=== PATIENT | female | born 1950 | race Caucasian/White ===

== ENCOUNTER 2017-03-18 10:35 | Inpatient (IN) | payer BC ==
[2017-03-03 08:54] VITALS: BMI 31.0
--- NOTE | 2017-03-03 09:26 | PAT Medication Instructions ---
Service Date Mar 03, 2017. Current Home Medication List Acetaminophen (Tylenol), 1,000 MG PO TID PRN for Pain Atorvastatin (Lipitor), 10 MG PO QAM Lisinopril (Zestril), 20 MG PO QAM Meloxicam (Mobic), 15 MG PO QPM Medication Instructions For Your Scheduled Surgery - Hold the following medications 10 days prior to surgery per surgeon's instructions: Meloxicam (Mobic), 15 MG PO QPM - Hold the following medications the morning of surgery: Lisinopril (Zestril), 20 MG PO QAM - Take the following medications the morning of surgery with a sip of water OTHERWISE NOTHING TO EAT OR DRINK AFTER MIDNIGHT: Atorvastatin (Lipitor), 10 MG PO QAM Acetaminophen (Tylenol), 1,000 MG PO TID PRN for Pain (may take if needed up to 4 hours prior to surgery) - Take the following medications as scheduled the night before surgery: Acetaminophen (Tylenol), 1,000 MG PO TID PRN for Pain If you have any questions please call us at [phone] or [phone] or [phone]
--- NOTE | 2017-03-03 10:07 | DIAGNOSTIC IMAGING REPORT ---
CHEST PREADMISSION(PA/LAT) CLINICAL HISTORY: Preoperative evaluation. COMPARISON STUDY: No previous studies for comparison. FINDINGS: Lung volumes are normal. There is no pneumothorax or pleural effusion. Linear left basilar opacity is suggestive of atelectasis or scarring. Cardiac size is at the upper limits of normal. There is no evidence of pulmonary edema. Incidental note is made of mild S-shaped scoliosis of the thoracolumbar spine. IMPRESSION: No acute cardiopulmonary findings. Electronically signed by: Roosevelt Holliday M.D. 03/03/2017 10:06 AM Dictated Date/Time: 03/03/2017 10:04 AM
[2017-03-03 10:52] LABS: BASO % 0.3 %; BASO ABS # 0.02 K/uL (0-0.2); COMPLETE YES; EOS % 2.1 %; IG% 0.2 %; LYMPH % 27.6 %; LYMPH ABS # 1.83 K/uL (1.2-3.4); MEAN CELL VOLUME 92.5 fL (80-100); MEAN CORPUSCULAR HEMOGLOBIN 30.8 pg (25-34); MEAN CORPUSCULAR HGB CONC 33.3 g/dl (32-36); MEAN PLATELET VOLUME 8.8 fL (7.4-10.4); MONO % 6.9 %; NEUT % 62.9 %; PLATELET COUNT 333 K/uL (130-400); RED BLOOD COUNT 4.54 M/uL (4.2-5.4); WHITE BLOOD COUNT 6.63 K/uL (4.8-10.8)
[2017-03-03 11:04] LABS: INR 0.9 (0.9-1.1); PARTIAL THROMBOPLASTIN RATIO 1.1
[2017-03-03 11:05] LABS: BUN/CREATININE RATIO 22.5 (10-20); CALCIUM 8.9 mg/dl (8.5-10.1); CREATININE 0.77 mg/dl (0.60-1.20); POTASSIUM 4.2 mmol/L (3.5-5.1)
--- NOTE | 2017-03-13 21:25 | HISTORY & PHYSICAL EXAMINATION ---
DATE OF ADMISSION: 03/18/2017 CHIEF COMPLAINT: Right hip pain. HISTORY OF PRESENT ILLNESS: The patient is a 66-year-old female from the [facility] area, who presents for treatment of her right hip. The patient has a 2-year history of increasing right hip pain and discomfort. She has been through extensive conservative treatment including oral medicines. She started using a cane to get around. The more she walks, the more it hurts. She cannot walk any significant distance. 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 She would like to have the right hip fixed. PAST MEDICAL HISTORY: 1. Elevated cholesterol. 2. Hypertension. 3. Mild obesity, BMI of 31.6. PAST SURGICAL HISTORY: Hysterectomy. ALLERGIES: None. CURRENT MEDICINES: 1. Atorvastatin 10 mg. 2. Meloxicam 15 mg. 3. Lisinopril 20 mg a day. 4. Tylenol Extra Strength 2-3 times a day. SOCIAL HISTORY: A 66-year-old female. Lives in [place]. She is . Two children. 1-2 drinks per day. FAMILY HISTORY: Significant for thyroid removal. REVIEW OF SYSTEMS: Negative for diabetes, neurologic problems, vascular problems, bleeding disorders. No chest pain, no shortness of breath. No history of DVT or PE. PHYSICAL EXAMINATION: GENERAL: Reveals a healthy pleasant, middle-aged female, who looks in pretty good health. HEENT: Benign. NECK: Supple. No lymphadenopathy. LUNGS: Clear to auscultation. HEART: Regular rate and rhythm. ABDOMEN: Soft, nontender, nondistended. EXTREMITIES: Grossly neurovascularly intact except as follows. Examination of the right hip and leg reveals the patient walks with a markedly antalgic gait. She has about a 0.5 cm to 1 cm short on the right side compared to the left. She has got pain and stiffness with any type of hip motion. She is neurologically intact. X-RAYS: X-rays of the right hip were reviewed. It shows advanced right hip DJD. Has got complete loss of her superior joint space. She has cystic change in the femoral head and acetabulum. She has got a little flattening of the femoral head. ASSESSMENT: A 66-year-old female with a 2-year history of increasing right hip pain and discomfort, unresponsive to conservative treatment. She has got advanced hip arthritis. She would like to have her hip fixed. PLAN: We will take her to the operating room, do a right total hip replacement. The risks and benefits of this procedure were explained to the patient including, but not limited to, DVT, PE, , infection, neurological injury, vascular injury, bleeding problem, pain, limited range of motion, stiffness, failure to relieve symptoms, incomplete relief of symptoms , need for further surgery in the future, fracture, leg length inequality, nerve palsy, dislocation, need for revision surgery, etc. The patient understands and desires to proceed. Informed consent was obtained. We did talk about holding the lisinopril the morning of surgery and stopping the Mobic about 10 days preop. She is planning to be discharged to home using [facility]. I will see her back 2 weeks postop. MACI
[2017-03-18] VITALS (13 sets, daily range): BP systolic 114–152; BP diastolic 74–89; PULSE 62–96; TEMP 34.8–36.8; O2SAT 18–98; Ht 157.5 cm; Wt 78.3 kg
[~2017-03-18] VITALS: Ht 157.5 cm; Wt 78.3 kg
[~2017-03-18 10:35] MED LIST: ACET-1256 PO; ACETAMINOPHEN 500 MG TAB PO SCH; ATOR10TA82 PO; ATROPINE SULFATE 0.1 MG/ML 5ML SYR IV PRN; BUPIVACAINE 0.5 % 5 MG/1 ML PF 10ML VIAL ONE; CEFAZOLIN 2000 MG/60 ML D5W 60 ML IV SCH; EpHEDrine SULFATE INJ 50 MG/ML AMP IV PRN; FAMOTIDINE 20 MG TAB PO SCH; FENTANYL CITRATE INJ 50 MCG/1 ML 2 ML VIAL IV PRN; GABAPENTIN 300 MG CAP PO SCH; LACTATED RINGER'S 1000ML 1,000 ML IV SCH; LACTATED RINGER'S 1000ML 500 ML IV ONE; LACTATED RINGER'S 1000ML IV SCH; LISI-725 PO; MELO7.5T5 PO; METOCLOPRAMIDE HCL 10 MG TAB PO SCH; ONDANSETRON INJ 2 MG/ML 2 ML VIAL IV PRN; SCOPOLAMINE 1.5 MG TDSY TD SCH; TRANEXAMIC ACID INJ 1,000 MG in SODIUM CHLORIDE 0.9% 100ML 100 ML IV SCH
[2017-03-18] MEDS ORDERED: LIDOCAINE HCL 2% 2 ML VIAL (20MG/ML) ONE (11:30)
[2017-03-18] MEDS ORDERED: FENTANYL CITRATE INJ 50 MCG/1 ML 2 ML VIAL ONE (11:30)
[2017-03-18] MEDS ORDERED: PROPOFOL IV EMULSION 10 MG/ML 20 ML VIAL IV ONE (11:30)
[2017-03-18] MEDS ORDERED: MIDAZOLAM HCL 1 MG/ML 2ML VIAL ONE ×2 (11:30→12:43)
[2017-03-18] MEDS ORDERED: MoRPHine SULFATE PF 1 MG/ML 10 ML AMP/VIAL ONE (11:31)
--- NOTE | 2017-03-18 12:26 | History & Physical Bridge Note ---
H&P Re-Evaluation Bridge Note: I have examined the patient, reviewed the History & Physical and in the interval since the performance of the History & Physical I have noted the following changes of clinical significance: No changes noted
[2017-03-18] MEDS ORDERED: BACITRACIN 50000 UNIT VIAL ONE (12:35)
[2017-03-18] MEDS ORDERED: BUPIVACAINE/EPINEPHRINE 0.5% MPF 1:200,000 30 ML VIAL ONE (12:47)
[2017-03-18] MEDS ORDERED: KETAMINE HCL INJ 50 MG/ML 10 ML VIAL ONE (12:58)
[2017-03-18] MEDS ORDERED: NALOXONE HCL INJ 0.08 MG in SYRINGE 1.8 ML IV PRN (13:39)
[2017-03-18] MEDS ORDERED: SODIUM CHLORIDE 0.9% 1000ML 1,000 ML IV PRN (13:39)
[2017-03-18] MEDS ORDERED: LACTATED RINGER'S 1000ML 500 ML IV PRN (13:39)
[2017-03-18] MEDS ORDERED: NALOXONE HCL INJ 1 MG in SODIUM CHLORIDE 0.9% 1000ML 1,000 ML IV PRN (13:39)
[2017-03-18] MEDS ORDERED: MoRPHine SULFATE 2 MG/ML CARP IV PRN (13:45)
[2017-03-18] MEDS ORDERED: EpHEDrine SULFATE INJ 50 MG/ML AMP IV PRN (13:45)
[2017-03-18] MEDS ORDERED: MoRPHine SULFATE PF 1 MG/ML 10 ML AMP/VIAL INT SPINAL PRN (13:45)
[2017-03-18] MEDS ORDERED: NALOXONE HCL 0.4 MG/1 ML VIAL/CARP IV PRN (13:45)
[2017-03-18] MEDS ORDERED: DiphenhydrAMINE HCL 50 MG/ML VIAL IV PRN (13:45)
[2017-03-18] MEDS ORDERED: NALBUPHINE HCL INJ 10 MG/ML AMP IV PRN (13:45)
[2017-03-18] MEDS ORDERED: MEPERIDINE HCL 25 MG/ML CARP IV PRN (13:45)
--- NOTE | 2017-03-18 14:29 | [facility] Post Operative Brief Note ---
Immediate Operative Summary Operative Date Mar 18, 2017. Pre-Operative Diagnosis Right Hip Advanced Degenerative Joint Disease Post-Operative Diagnosis Right Hip Advanced Degenerative Joint Disease Procedure(s) Performed Right Total Hip Arthroplasty--Uncemented Surgeon Dr. Bernard Cutting Torch Operator Surgeon(s) ARIELLA Torrez Estimated Blood Loss 300 ml Findings Right Hip DJD Fluids (cc crystalloids) 1800 cc Specimens A. Right Femoral Head Drains None Anesthesia Spinal Complication(s) None Disposition Recovery Room / PACU
[2017-03-18] MEDS ORDERED: MAGNESIUM HYDROXIDE SUSP 30 ML UDC PO PRN (14:30)
[2017-03-18] MEDS ORDERED: BISACODYL 10 MG SUPP PR PRN (14:30)
[2017-03-18] MEDS ORDERED: SILVER SULFADIAZINE 1% CR 50 GM JAR EXT PRN (14:30)
[2017-03-18] MEDS ORDERED: ALUMINUM/MAGNESIUM/SIMETH (MAALOX MAX) 30 ML UDC PO PRN (14:30)
[2017-03-18] MEDS ORDERED: VASOPRESSIN 20 UNIT/ML VIAL ONE (14:31)
--- NOTE | 2017-03-18 15:09 | DIAGNOSTIC IMAGING REPORT ---
RIGHT PELVIS/UNILATERAL HIP 1 VIEW CLINICAL HISTORY: IN PACU - A/P PELVIS and LATERAL HIP INCLUDING ALL OF IMPLANT Right pain COMPARISON: None. DISCUSSION: Total right hip replacement. Good contact between prosthetic and underlying bone. No evidence for acetabular protrusion. Expected soft tissue postoperative change IMPRESSION: Anatomic alignment status post total right hip replacement Electronically signed by: Mart Villasenor M.D. 03/18/2017 3:07 PM Dictated Date/Time: 03/18/2017 3:07 PM
--- NOTE | 2017-03-18 15:18 | Anesthesiology Progress Note ---
Anesthesia Post Op Note Date & Time Mar 18, 2017 at 15:17 Vital Signs Pain Intensity: 0 Vital Signs Past 12 Hours Date Time Temp Pulse Resp B/P (MAP) Pulse Ox O2 Delivery O2 Flow Rate FiO2 03/18/17 15:10 94 17 162/86 99 Nasal Cannula 2 03/18/17 15:00 36.5 85 15 159/83 98 Nasal Cannula 2 03/18/17 14:50 99 17 151/89 98 Nasal Cannula 2 03/18/17 14:40 91 24 145/85 99 Nasal Cannula 4 03/18/17 14:30 92 15 150/87 99 Nasal Cannula 4 03/18/17 14:24 36.5 92 12 165/100 98 Nasal Cannula 4 03/18/17 11:02 36.8 62 20 143/78 94 Room Air Notes Mental Status: alert / awake / arousable, participated in evaluation Pt Amnestic to Procedure: Yes Nausea / Vomiting: adequately controlled Pain: adequately controlled Airway Patency, RR, SpO2: stable & adequate BP & HR: stable & adequate Hydration State: stable & adequate Neuraxial Anesthesia: was administered, sensory block is resolving Anesthetic Complications: no major complications apparent
[2017-03-18] MEDS: CHECK SCOPOLAMINE PATCH PLACEMENT SCH ×2 (15:33→23:15)
[2017-03-18] MEDS: ONDANSETRON INJ 2 MG/ML 2 ML VIAL IV PRN ×2 (15:33→23:22)
[2017-03-18] MEDS: D5W AND 1/2NSS + 20MEQ KCL 1,000 ML IV SCH (16:54)
[2017-03-18] MEDS: FERROUS GLUCONATE 324 MG TAB PO SCH (18:01)
[2017-03-18] MEDS: KETOROLAC TROMETHAMINE 30 MG/ML VIAL IV. SCH ×2 (18:02→23:15)
[2017-03-18] MEDS: CEFAZOLIN IV 1,000 MG in DEXTROSE 5% 50ML 50 ML IV SCH (19:56)
[2017-03-18] MEDS ORDERED: TRANEXAMIC ACID INJ 1,000 MG in SODIUM CHLORIDE 0.9% 100ML 100 ML IV ONE (20:00)
--- NOTE | 2017-03-18 20:36 | OPERATIVE REPORT ---
DATE OF OPERATION: 03/18/2017 SURGEON: Andry Bernard MD VESSEL SLAG WORKER: ARIELLA Hammonds PREOPERATIVE DIAGNOSIS: Right hip degenerative joint disease. POSTOPERATIVE DIAGNOSIS: Same. PROCEDURE PERFORMED: Right uncemented ceramic on highly cross-linked polyethylene total hip arthroplasty. COMPLICATIONS: None. ESTIMATED BLOOD LOSS: 300 mL. FLUID REPLACEMENT: 1800 mL crystalloid fluid replacement. ANESTHESIA: Spinal. SPECIMENS: Right femoral head sent for pathology. OPERATIVE INDICATIONS: The patient is a 66-year-old female who has had a 2 year history of increasing right hip pain and discomfort. She has been through extensive conservative care without adequate relief. She has actually resorted to using a cane to get around. Pain has become more debilitating and she was having trouble doing her job as a result. She elected to do a total hip arthroplasty. OPERATIVE FINDINGS: Operative findings revealed advanced right hip DJD. She had grade 4 [id number] disease with an inflammatory pattern with extensive synovitis and inflammation at the femoral head and acetabulum. She had a moderate sized joint effusion. Fairly stiff hip. OPERATIVE IMPLANTS: Operative implants consisted of: 1. Biomet size 50 G7 acetabular shell. 2. A 6.5 cancellous acetabular screws, 1 at 35 mm length and 1 at 20 mm in length. 3. An apex hole eliminator. 4. Highly cross-linked polyethylene liner with a 50 mm outer diameter and 32 mm inner diameter. 5. A DePuy size 4 high offset [place] uncemented femoral stem. 6. A +5/32 mm ceramic articular ball. OPERATIVE PROCEDURE: The patient taken to the operating room, identified and placed on the operating table in supine position. All contact areas were appropriately padded. IV antibiotics were provided by anesthesia team. A spinal anesthetic had been implemented in the holding area. A Chiu catheter was placed in sterile fashion. The patient was placed in the left lateral decubitus position. An axillary roll was placed. [facility] was used for positioning. Right hip and leg were then prepped and draped in the usual sterile fashion. A posterolateral approach to the right hip was then performed through a curvilinear incision centered over the greater trochanter. Sharp dissection was carried out through the subcutaneous tissues down to the level of the IT band and gluteal fascia. The IT band and gluteal fascia were then incised longitudinally in line with the skin incision. The underlying greater trochanteric bursa was excised. The piriformis and external rotators and the posterior capsule was then incised in a single layer. Great care was taken throughout the procedure to protect the sciatic nerve at all times. Hip was internally rotated and dislocated. Femoral neck osteotomy cut was made with the final cut 11 mm above the lesser trochanter. Femoral head was removed and sent for pathology. The femur was retracted anteriorly. Attention was then drawn to the acetabulum. The acetabular labrum was excised. The pulvinar fat was excised. Sequential reaming of the acetabulum was then performed beginning with a size 43 and progressing up to 49. A 50 mm Biomet G7 acetabular shell was then placed in about 40 degrees of lateral opening and 20 degrees of anteversion. It was fixed with two 6.5 cancellous acetabular screws. A trial liner was placed. Attention was then drawn to the femur. The proximal femur was entered with a cookie cutter followed by canal finder and lateralizing reamer. Sequential reaming of the femur was then performed beginning with a size 01 progressing up to the 2, 3. We stopped at the size 3. I then broached beginning with a size 1 and progressing up to a 4. We got excellent metaphyseal fit with a 4. A calcar reamer was used to smoothen off the calcar. We then trialed the hip and the +5 articular ball provided full stability and full extension and external rotation and flexion to 90 degrees, internal rotation to 50 degrees. Leg lengths appeared appropriate. Attention was then drawn toward placement of permanent components. All trial implants were removed. An apex hole eliminator was placed. Highly cross-linked polyethylene liner was placed. A Greeley size 4 high offset femoral stem was impacted in position. A +5/32 mm ceramic articular ball was placed. Hip was located and once again found to be stable. Attention was then drawn toward closing. The wound was irrigated with copious amounts of pulsatile lavage solution. I did inject locally with 50 mL of 0.5% Marcaine with epinephrine. The posterior capsule and external rotators were then repaired through a single layer with #2 Tycron suture to the posterior aspect of the greater trochanter through drill holes. IT band and gluteal fascia were then closed with #1 PDS suture in a running fashion. The subcutaneous tissues were then closed with 2-0 Dexon suture and subcutaneous tissue was closed in 2 layers with the deep layer #1 Vicryl suture, subcutaneous tissues with 2-0 Dexon suture in a buried interrupted fashion. The skin was closed with skin jagruti. Leg was then cleaned and dried and a sterile dressing of Xeroform, 4 x 4, sterile ABD pad and foam tape was applied. The patient was then transferred to the recovery room in stable condition. The patient tolerated the procedure well with no complications. All needle and sponge counts were correct at the end of the operation. I attest to the content of the Intraoperative Record and any orders documented therein. Any exception s are noted below.
[2017-03-18] MEDS ORDERED: TAPENTADOL ER 50 MG TABCR PO SCH (21:00)
[2017-03-18] MEDS: ACETAMINOPHEN 500 MG TAB PO SCH (21:20)
[2017-03-18] MEDS: SENNA 8.6 MG TAB PO SCH (21:21)
[2017-03-18] MEDS: ASPIRIN 325 MG ECTAB PO SCH (21:21)
[2017-03-18] MEDS: DOCUSATE SODIUM 100 MG CAP PO SCH (21:22)
[2017-03-19] VITALS (15 sets, daily range): BP systolic 104–129; BP diastolic 66–69; PULSE 61–71; TEMP 36.3–37; O2SAT 94–99
[2017-03-19] MEDS: D5W AND 1/2NSS + 20MEQ KCL 1,000 ML IV SCH (02:15)
[2017-03-19] MEDS: CEFAZOLIN IV 1,000 MG in DEXTROSE 5% 50ML 50 ML IV SCH (03:43)
[2017-03-19] MEDS: KETOROLAC TROMETHAMINE 30 MG/ML VIAL IV. SCH ×3 (05:32→17:47)
[2017-03-19] MEDS: ACETAMINOPHEN 500 MG TAB PO SCH ×3 (05:33→21:25)
[2017-03-19 06:17] LABS: BASO % 0.1 %; BASO ABS # 0.01 K/uL (0-0.2); COMPLETE YES; HEMATOCRIT 33.1 % (37-47); IG% 0.1 %; LYMPH % 15.7 %; LYMPH ABS # 1.62 K/uL (1.2-3.4); MEAN CELL VOLUME 94.6 fL (80-100); MEAN CORPUSCULAR HEMOGLOBIN 30.9 pg (25-34); MEAN CORPUSCULAR HGB CONC 32.6 g/dl (32-36); MONO % 8.5 %; NEUT % 75.6 %; PLATELET COUNT 254 K/uL (130-400); WHITE BLOOD COUNT 10.29 K/uL (4.8-10.8)
[2017-03-19 06:56] LABS: BUN/CREATININE RATIO 16.5 (10-20); CALCIUM 8.1 mg/dl (8.5-10.1); CREATININE 0.77 mg/dl (0.60-1.20); POTASSIUM 4.3 mmol/L (3.5-5.1)
[2017-03-19] MEDS: CHECK SCOPOLAMINE PATCH PLACEMENT SCH ×2 (07:44→16:32)
[2017-03-19] MEDS: FERROUS GLUCONATE 324 MG TAB PO SCH ×3 (08:30→17:45)
[2017-03-19] MEDS ORDERED: DiphenhydrAMINE HCL 50 MG/ML VIAL IV PRN (08:45)
[2017-03-19] MEDS ORDERED: NO NARCOTICS OR SEDATIVES ONE (08:45)
[2017-03-19] MEDS ORDERED: ZOLPIDEM TARTRATE 5 MG TAB PO PRN (08:45)
[2017-03-19] MEDS ORDERED: MoRPHine SULFATE 2 MG/ML CARP IV PRN (08:45)
[2017-03-19] MEDS ORDERED: METOCLOPRAMIDE HCL INJ 5 MG/ML 2 ML VIAL IV PRN (08:45)
[2017-03-19] MEDS ORDERED: OXYCODONE HCL IR 5 MG TAB (IMMEDIATE RELEASE) PO PRN (08:45)
[2017-03-19] MEDS ORDERED: DC INTRASPINAL MORPHINE ONE (08:45)
[2017-03-19] MEDS ORDERED: ONDANSETRON INJ 2 MG/ML 2 ML VIAL IV PRN (08:46)
[2017-03-19] MEDS: ASPIRIN 325 MG ECTAB PO SCH ×2 (08:54→20:49)
[2017-03-19] MEDS: DOCUSATE SODIUM 100 MG CAP PO SCH ×2 (08:55→20:49)
[2017-03-19] MEDS: ATORVASTATIN 10 MG TAB PO SCH (08:55)
[2017-03-19] MEDS: PANTOprazole SOD 40 MG TAB PO SCH (08:55)
[2017-03-19] MEDS: MULTIVITAMIN TAB PO SCH (08:56)
[2017-03-19] MEDS: TAPENTADOL ER 50 MG TABCR PO SCH ×2 (08:57→20:49)
--- NOTE | 2017-03-19 10:31 | PROGRESS NOTE ---
DATE: 03/19/2017 SUBJECTIVE: A 66-year-old white female postop day 1 from right total hip replacement. She is doing well. Really denies much in the way of pain. No chest pain or shortness of breath. Not feeling dizzy or lightheaded. OBJECTIVE: VITAL SIGNS: Temperature 36.9. Vital signs stable. PHYSICAL EXAMINATION: GENERAL: Reveals a pleasant middle-aged female. She is sitting in her wheelchair out in the hallway, just finished therapy when I examined her this morning. LUNGS: Clear to auscultation. HEART: Regular rate and rhythm. ABDOMEN: Soft, nontender, nondistended. EXTREMITIES: Grossly neurovascularly intact except as follows: Examination of the right hip and leg reveals the dressing to be clean, dry and intact. She can dorsiflex and plantarflex her foot appropriately. Hip is located. NEUROLOGIC: She is neurologically intact. LABORATORY DATA: Hemoglobin 10.8, hematocrit 33.1. Electrolytes are stable. ASSESSMENT: A 66-year-old white female postop day 1 from right total hip replacement, doing well. Pain is controlled. Hip is located. She is neurologically intact. PLAN: 1. DVT prophylaxis including thigh-high TEDs, SCDs, and aspirin twice a day. 2. PT/OT. Weightbearing as tolerated. Right total hip protocol. 3. Pain control, doing well with current pain regimen. 4. Disposition: She is going to be discharged to home with some home health once adequately recovered. MACI
[2017-03-19] MEDS ORDERED: NURSING VERBAL MED ORDER ONE (10:45)
[2017-03-19] MEDS ORDERED: RXC5 PO (18:22)
[2017-03-19] MEDS ORDERED: FRRG PO (18:22)
[2017-03-19] MEDS ORDERED: ASPEC325 PO (18:22)
[2017-03-19] MEDS ORDERED: ACET-1256 PO (18:22)
--- NOTE | 2017-03-19 18:24 | Discharge Instructions ---
Discharge Instructions Date of Service Mar 19, 2017. Admission Reason for Admission: Right Hip Degenerative Joint Disease Discharge Discharge Diagnosis / Problem: Right Hip Replacement Discharge Goals Goal(s): Decrease discomfort, Improve function, Increase independence, Improve disease control, Therapeutic intervention Activity Recommendations Activity Limitations: per Instructions/Follow-up section (Total Hip Precautions ) Weightbearing Status: Right weightbearing . Instructions / Follow-Up Instructions / Follow-Up ACTIVITY RECOMMENDATIONS: Physical Therapy: * Aggressive physical therapy is not usually needed. You will learn to take care of yourself safely and walk. * Follow the "Hip Precautions Instructions." * In some cases, the social studies department chair at the hospital will arrange to have a therapist come to your house for the first couple of weeks to help you learn these skills. * You need to practice on your own or with the help of a family member as needed. * When you learn these skills, most of the therapy can be done on your own. Home Exercise: * You were shown a series of exercises in the hospital. Do these exercises three to four times each day including the exercises you were shown in physical therapy. Walking: * Get up and walk several times each day. For the first four weeks, try not to stand or walk for more than one hour at a time. If you do stand or walk for more than one hour, you will not hurt anything, but your leg will likely swell. * As you feel comfortable, you may change from the walker or crutches to a cane and then to independent walking. MEDICATIONS: New Medicine: * You will likely be taking one or more of these medicines: 1. Oxycodone - Take, as directed, when you need it, every four to six hours to control your pain. 2. Iron Sulfate - Take three times each day for the month after surgery to help you replace the blood lost during surgery. 3. Aspirin - Thins your blood to lessen the chance of forming a blood clot. * The most common side effects of pain medicine and iron are nausea and constipation. If nausea or constipation is too much of a problem or if you have any questions about your new medicines or doses, call [facility] at . We will try to help you manage these issues. VERY IMPORTANT TO READ AND REVIEW" Pain: * The immediate post-operative period after hip replacement surgery is often quite painful. * You are given a prescription for pain medicine. You should take it, as directed, when you need it, especially before physical therapy and before going to bed. Pain that interferes with sleep is very common and can last several months. * You will likely need pain medicine for the first two to four weeks. It will not stop all of the pain. The pain will lessen and as you feel better, you may change to milder pain medicine such as Tylenol. * The most common side effects of pain medicine are nausea and constipation, so don't take more than you need. SPECIAL CARE INSTRUCTIONS: TEDs/Elastic Stockings: * The white elastic stockings help limit swelling and prevent blood clots from forming in your legs. The more you wear them, the more they work. * Wear them for six weeks. Prevention of Infection: * Take antibiotics one hour before any dental cleaning, dental work, urological procedure, gastrointestinal procedure or any invasive surgery in order to prevent your new joint from getting infected. * You may get the antibiotics from the doctor performing the procedure or you may call our office at before and we will call in a prescription to the pharmacy of your choice. Things to Watch For: * Drainage from the incision site that occurs more than one week after your surgery. * Severely increased leg pain or swelling. * Increased redness at the incision site. * Fever above 102 degrees Fahrenheit. * Unusual chest pain or shortness of breath. * Unusual pain or burning with urination. Call [facility] at with any of the above problems or if you have any questions about your medicines or recovery. FOLLOW UP VISIT: Make an appointment to see your doctor for approximately two weeks after surgery for a progress check and staple removal by calling the office at . Current Hospital Diet Patient's current hospital diet: Regular Diet Discharge Diet Recommended Diet: Regular Diet Procedures Procedures Performed: Right Total Hip Arthroplasty--Uncemented Pending Studies Studies pending at discharge: no Medical Emergencies . Who to Call and When: Medical Emergencies: If at any time you feel your situation is an emergency, please call [phone] immediately. . Non-Emergent Contact Non-Emergency issues call your: Surgeon . "Provider Documentation" section prepared by Andry Bernard. . VTE Core Measure Inpt VTE Proph given/why not?: Other Anticoagulation, T.E.D. Stockings, SCD's
[2017-03-19] MEDS: SENNA 8.6 MG TAB PO SCH (21:25)
[2017-03-20] MEDS: CHECK SCOPOLAMINE PATCH PLACEMENT SCH
[2017-03-20] MEDS: KETOROLAC TROMETHAMINE 30 MG/ML VIAL IV. SCH ×2 (05:30)
[2017-03-20] MEDS: ACETAMINOPHEN 500 MG TAB PO SCH (05:30)
[2017-03-20 06:08] VITALS: BP 152/83; PULSE 76; TEMP 36.9; O2SAT 93
[2017-03-20 07:41] VITALS: BP 122/70; PULSE 74; TEMP 36.9; O2SAT 95
[2017-03-20] MEDS: TAPENTADOL ER 50 MG TABCR PO SCH (08:18)
[2017-03-20] MEDS: PANTOprazole SOD 40 MG TAB PO SCH (08:19)
[2017-03-20] MEDS: FERROUS GLUCONATE 324 MG TAB PO SCH (08:20)
[2017-03-20] MEDS: ATORVASTATIN 10 MG TAB PO SCH (08:20)
[2017-03-20] MEDS: MULTIVITAMIN TAB PO SCH (08:21)
[2017-03-20 08:39] VITALS: O2SAT 95
[2017-03-20] MEDS: ASPIRIN 325 MG ECTAB PO SCH (08:51)
[2017-03-20] MEDS: DOCUSATE SODIUM 100 MG CAP PO SCH (08:52)
--- NOTE | 2017-03-20 09:18 | PROGRESS NOTE ---
DATE: 03/20/2017 DATE: 03/20/2017. SUBJECTIVE: A 66-year-old white female postop day 2 from right total hip replacement. She is doing well. Some pain with motion but very well controlled. Therapy has gone well. No chest pain or shortness of breath. Not feeling dizzy or lightheaded. OBJECTIVE: VITAL SIGNS: Temperature 36.9. Vital signs stable. PHYSICAL EXAMINATION: GENERAL: Reveals a healthy pleasant 66-year-old female. She is sitting up in bed, looks pretty comfortable. LUNGS: Clear to auscultation. HEART: Regular rate and rhythm. ABDOMEN: Soft, nontender, nondistended. EXTREMITY EXAMINATION: Grossly neurovascularly intact except as follows: Examination of the right hip and leg reveals the wound to be clean, dry and intact. Her leg lengths are equal. Hip is located. She is neurologically intact. ASSESSMENT: A 66-year-old female postop day 2 from right total hip replacement, doing quite well. PLAN: 1. DVT prophylaxis including thigh-high TEDs, SCDs, and aspirin twice a day. 2. PT/OT. Weightbearing as tolerated. Right total hip protocol. 3. Pain control. Doing well with current pain regimen. 4. Disposition. Plan to discharge to home with home health later on today.
[2017-03-20 10:17] VITALS: BP 122/70; PULSE 74; TEMP 36.9; O2SAT 95
--- NOTE | 2017-03-26 16:19 | Discharge Summary ---
Orthopedic Discharge Summary Admission Date/Reason Mar 18, 2017 at 16:03 Right Hip Degenerative Joint Disease. Discharge Date/Disposition Mar 20, 2017 Home with services Diagnosis Principal Diagnosis: right hip DJD Secondary Diagnoses/Problems: 1. Elevated cholesterol. 2. Hypertension. 3. Mild obesity, BMI of 31.6. Procedure(s) Performed right GHADA Consultations NONE Medication Reconciliation New Medications: Aspirin (Aspirin) 325 Mg Ectab 325 MG PO BID for 45 Days, #90 Take to prevent blood clots. Ferrous Gluconate (Ferrous Gluconate) 324 Mg Tab 324 MG PO BIDM for 30 Days, #60 TAB Take to restore blood count. Oxycodone HCl (Oxycodone HCl) 5 Mg Tab 5 MG PO Q4H PRN for Pain for 30 Days, #60 TAB Take as needed for Pain. Changed Medications: Acetaminophen (Tylenol) 500 Mg Tab 1000 MG PO TID PRN for Pain for 30 Days, #180 TAB (Medication details modified) Take 3 times per day to lessen pain. Continued Medications: Atorvastatin (Lipitor) 10 Mg Tab 10 MG PO QAM, TAB Lisinopril (Zestril) 20 Mg Tab 20 MG PO QAM, TAB Meloxicam (Mobic) 7.5 Mg Tab 15 MG PO QPM, TAB Admission Physical Exam As per Admitting History & Physical. Hospital Course Jeanne was admitted on 6//17 and underwent GHADA. She tolerated the procedure well. No complications. She was transferred to the pacu post op and later to the orthopedic floor for further care. She was given ancef for antibiotic prophylaxis. Teds, scd's, and aspirin for dvt prophylaxis. Hemoglobin, hematocrit and vital signs were monitored and remained stable. She did not require any blood transfusions. By POD #2 she was tolerating a general diet. Pain was controlled with oral pain medicine. she was participating in PT and had no s/s of dvt. On POD#2 she was discharged home and set up with home health. She was given printed discharge instructions including new prescriptions as above. Continue PT , total hip precautions, WBAT, romeo stockings, follow up in 10-12 days or sooner if there are problems or concerns. Discharge Instructions Please refer to the electronic Patient Visit Report (Discharge Instructions) for additional information.
== END 2017-03-20 10:46 | disposition home health service (06) | DRG 470 ==
LOC: C.ACU 10:35 → ENRESERV 14:48 → C.3E 16:03
PROVIDERS: ADMIT Orthopaedic Surgery Sports Medicine; ATTEND Orthopaedic Surgery Sports Medicine
PROC: 0SR904A Replacement of Right Hip Joint with Ceramic on Polyethylene Synthetic Substitute, Uncemented, Open Approach (ICD-10-PCS; principal; 2017-03-18 12:45)
DX: M16.11 Unilateral primary osteoarthritis, right hip (principal); E78.00 Pure hypercholesterolemia, unspecified; E66.9 Obesity, unspecified; I10 Essential (primary) hypertension; F17.210 Nicotine dependence, cigarettes, uncomplicated; E78.5 Hyperlipidemia, unspecified; M41.9 Scoliosis, unspecified; Z79.899 Other long term (current) drug therapy; Z79.1 Long term (current) use of non-steroidal anti-inflammatories (NSAID); Z68.31 Body mass index [BMI] 31.0-31.9, adult

== ENCOUNTER → 2017-07-23 | Outpatient (CLI) | payer BC ==
[~2017-07-23] MED LIST changes: -ACETAMINOPHEN 500 MG TAB PO SCH; +ASPEC325 PO; -ATROPINE SULFATE 0.1 MG/ML 5ML SYR IV PRN; -BUPIVACAINE 0.5 % 5 MG/1 ML PF 10ML VIAL ONE; -CEFAZOLIN 2000 MG/60 ML D5W 60 ML IV SCH; -EpHEDrine SULFATE INJ 50 MG/ML AMP IV PRN; -FAMOTIDINE 20 MG TAB PO SCH; -FENTANYL CITRATE INJ 50 MCG/1 ML 2 ML VIAL IV PRN; +FRRG PO; -GABAPENTIN 300 MG CAP PO SCH; -LACTATED RINGER'S 1000ML 1,000 ML IV SCH; -LACTATED RINGER'S 1000ML 500 ML IV ONE; -LACTATED RINGER'S 1000ML IV SCH; -METOCLOPRAMIDE HCL 10 MG TAB PO SCH; -ONDANSETRON INJ 2 MG/ML 2 ML VIAL IV PRN; +RXC5 PO; -SCOPOLAMINE 1.5 MG TDSY TD SCH; -TRANEXAMIC ACID INJ 1,000 MG in SODIUM CHLORIDE 0.9% 100ML 100 ML IV SCH
[2017-07-23 18:08] LABS: BASO % 0.4 %; BASO ABS # 0.03 K/uL (0-0.2); COMPLETE YES; EOS % 2.4 %; HEMATOCRIT 42.2 % (37-47); IG% 0.1 %; LYMPH % 43.3 %; LYMPH ABS # 3.24 K/uL (1.2-3.4); MEAN CELL VOLUME 91.5 fL (80-100); MEAN CORPUSCULAR HEMOGLOBIN 30.4 pg (25-34); MEAN CORPUSCULAR HGB CONC 33.2 g/dl (32-36); MEAN PLATELET VOLUME 9.2 fL (7.4-10.4); MONO % 8.2 %; NEUT % 45.6 %; PLATELET COUNT 306 K/uL (130-400); RED BLOOD COUNT 4.61 M/uL (4.2-5.4); WHITE BLOOD COUNT 7.48 K/uL (4.8-10.8)
[2017-07-23 18:17] LABS: ALT/SGPT 20 U/L (12-78); BLOOD UREA NITROGEN 20 mg/dl (7-18); BUN/CREATININE RATIO 24.1 (10-20); CALCIUM 9.2 mg/dl (8.5-10.1); CARBON DIOXIDE 27 mmol/L (21-32); CHLORIDE 105 mmol/L (98-107); CHOLESTEROL 193 mg/dl (0-200); CREATININE 0.82 mg/dl (0.60-1.20); GLUCOSE 85 mg/dl (70-99); SODIUM 138 mmol/L (136-145)
[2017-07-23 18:18] LABS: URINE APPEARANCE CLEAR (CLEAR); URINE BILIRUBIN NEG (NEG); URINE COLOR YELLOW; URINE NITRITE NEG (NEG); URINE PH 5.5 (4.5-7.5); URINE SPECIFIC GRAVITY 1.013 (1.000-1.030); UROBILINOGEN NEG (NEG)
[2017-07-23 18:20] LABS: ALB/GLOB RATIO 1.1 (0.9-2); ALKALINE PHOSPHATASE 86 U/L (45-117); AST/SGOT 17 U/L (15-37); CHOLESTEROL/HDL RATIO 3.3; HDL CHOLESTEROL 59 mg/dl; LDL CHOLESTEROL CALCULATED 104 mg/dl; TRIGLYCERIDES 151 mg/dl (0-150); VERY LOW DENSITY LIPOPROT CALC 30 mg/dl
[2017-07-23 18:29] LABS: MANUAL MICROSCOPIC REQUIRED? NO; REVIEW REQ? NO
== END | disposition home or self-care (01) ==
LOC: C.LABMFLN 14:02
PROVIDERS: ATTEND Physician Assistant
DX: E78.5 Hyperlipidemia, unspecified (principal); I10 Essential (primary) hypertension